=== PATIENT | male | born 1950 | race Two or more races ===

== ENCOUNTER 2020-04-09 10:49 | Outpatient (CLI) | payer MEDICARE | END 2020-04-09 23:59 | disposition home or self-care (01) | LOC: MSC 10:49 | PROVIDERS: ATTEND Internal Medicine | DX: M54.10 Radiculopathy, site unspecified (principal); I48.91 Unspecified atrial fibrillation; Z79.01 Long term (current) use of anticoagulants; G47.33 Obstructive sleep apnea (adult) (pediatric); I10 Essential (primary) hypertension; G95.19 Other vascular myelopathies; E03.9 Hypothyroidism, unspecified; E78.2 Mixed hyperlipidemia; M19.90 Unspecified osteoarthritis, unspecified site; E29.1 Testicular hypofunction; Z79.891 Long term (current) use of opiate analgesic; Z79.899 Other long term (current) drug therapy ==